=== PATIENT | female | born 1980 | race Hispanic/Latino ===

== ENCOUNTER 2022-12-05 06:02 | Day surgery (SDC) | payer BC, OTHER ==
[2022-12-04 13:17] VITALS: BMI 30.2
[2022-12-05] MEDS ORDERED: Bupivacaine PF 0.5% 30 ML VIAL ONE (06:34)
[2022-12-05] MEDS ORDERED: EPINEPHrine 1 MG/ML AMP ONE (06:34)
[2022-12-05] MEDS ORDERED: Gabapentin 300 MG CAP ONE (06:37)
[2022-12-05] MEDS ORDERED: Famotidine/PF 20 mg/2ml Vial ONE (06:38)
[2022-12-05] MEDS ORDERED: CeleCOXIB 100 MG CAP ONE (06:39)
[2022-12-05] MEDS ORDERED: Midazolam HCl 2 mg/2 ml Vial ONE ×2 (06:41→07:25)
[2022-12-05] MEDS ORDERED: Dexamethasone 4 mg/ml Vial ONE (06:41)
[2022-12-05] MEDS ORDERED: PROPOFOL 20 ML ONE (06:41)
[2022-12-05] MEDS ORDERED: Lidocaine 1% PF 5 ML VIAL ONE (06:41)
[2022-12-05] MEDS ORDERED: Ondansetron PF 4 MG/2 ML Vial ONE (06:41)
[2022-12-05] MEDS ORDERED: Rocuronium Bromide 10 MG/ML (10ML VIAL) ONE (06:41)
[2022-12-05] MEDS ORDERED: Fentanyl 100 MCG/2 ML VIAL ONE (06:42)
[2022-12-05] MEDS ORDERED: Ketorolac Tromethamine 30 MG/ML VIAL ONE ×2 (06:43)
[2022-12-05] MEDS ORDERED: Glycopyrrolate 0.2 MG/ML 5 ML SYRINGE ONE (06:43)
[2022-12-05] MEDS ORDERED: CEFAZOLIN 2 GM VIAL ONE (07:11)
[2022-12-05] MEDS ORDERED: PHENYLEPHRINE-NS 100 MCG/ML 10 ML SYRINGE ONE (08:30)
[2022-12-05] MEDS ORDERED: Meperidine HCl/PF 25 MG/ML VIAL ONE (09:41)
== END 2022-12-05 14:00 | disposition home or self-care (01) ==
LOC: CSHSDC 06:02
PROVIDERS: ATTEND Student in an Organized Health Care Education/Training Program
PROC: 0UT74ZZ Resection of Bilateral Fallopian Tubes, Percutaneous Endoscopic Approach (ICD-10-PCS; principal; 2022-12-05)
PROC: 0UT94ZZ Resection of Uterus, Percutaneous Endoscopic Approach (ICD-10-PCS; principal; 2022-12-05)
DX: N80.03 Adenomyosis of the uterus (principal); N88.8 Other specified noninflammatory disorders of cervix uteri; D25.9 Leiomyoma of uterus, unspecified; Z79.2 Long term (current) use of antibiotics; Z79.899 Other long term (current) drug therapy
CPT/HCPCS: 36415; 86850; 86900; 86901; 88307; J0171; J1100; J1885; J2175; J2250; J2405; J2704; J3010; S0020; S0028